=== PATIENT | female | born 1995 | race Hispanic/Latino ===

== ENCOUNTER 2019-06-01 13:07 | Emergency (ER) | payer OTHER, SELFPAY ==
[2019-06-01 13:30] VITALS: BP 117/75; PULSE 92; RESP 18; TEMP 36.5; O2SAT 99; BMI 27.8
[2019-06-01 14:53] VITALS: PULSE 83; RESP 16; O2SAT 99
[2019-06-01] MEDS: ALBUTEROL 2.5 MG/3 ML NEB (ADULT) INH (14:53)
--- NOTE | 2019-06-01 14:59 | ED_ITS ---
HPI - URI/Sore Throat <RENATO Fonseca - Last Filed: 06/01/19 22:08> General Chief Complaint: Upper Respiratory Symptoms Stated Complaint: 16 weeks ob/sob,congestion,ache x1 day Time Seen by Provider: 06/01/19 14:08 Source: patient Mode of arrival: ambulatory Limitations: no limitations History of Present Illness HPI Narrative: 23-year-old female , presents emergency department today complaining of chest tightness, nasal congestion, postnasal drip, and increased allergy symptoms over the past days. She states that she has had asthma as a child and has only used albuterol inhaler, she has not had to use an inhaler for years. However, she states her allergy symptoms have been increased recently and she took Zyrtec a few days ago which helped her symptoms for a day. She al so complains of an associated dry cough. Denies fevers, sore throat, chills, chest pain, abdominal pain, vaginal bleeding, dizziness, heart problems, respiratory problems, history of DVT, recent long trips or plane rides, or anxiety. She states that this feels like when she has to have asthma. Related Data Previous Rx's Medication Instructions Recorded albuterol sulfate [Ventolin HFA] 2 puff INHALATION Q4-6H PRN #8 gram 06/01/19 Allergies Allergy/AdvReac Type Severity Reaction Status Date / Time No Known Drug Allergies Allergy Verified 06/01/19 13:30 Review of Systems <RENATO Fonseca - Last Filed: 06/01/19 22:08> Review of Systems Narrative: REVIEW OF SYSTEMS: GENERAL: Denies fever or chills. HENT: No head trauma, hearing loss or sore throat. Complains of nasal congestion, see HPI. EYES: No loss of vision, double vision, eye pain, or irritation. CARDIOVASCULAR: No chest pain or syncope. RESPIRATORY: Complains of chest tightness, see HPI. GASTROINTESTINAL: No nausea, vomiting, diarrhea, or constipation. GENITOURINARY: No flank pain or dysuria. Patient reports she is , see HPI. MUSCULOSKELETAL: No pain, weakness, or deformities. INTEGUMENTARY: No rash, lesions, or pruritus. NEURO: No numbness, tingling, memory loss, or confusion. PSYCH: No behavior or mood changes. PFSH <RENATO Fonseca - Last Filed: 06/01/19 22:08> Medical History (Acute) Social History Smoking Status: Never smoker Social History Smoking Status: Never smoker Exam <RENATO Fonseca - Last Filed: 06/01/19 22:08> Initial Vital Signs Initial Vital Signs: Vital Signs Temperature 97.7 F 06/01/19 13:30 Pulse Rate 92 H 06/01/19 13:30 Respiratory Rate 18 06/01/19 13:30 Blood Pressure 117/75 06/01/19 13:30 Pulse Oximetry 99 06/01/19 13:30 PHYSICAL EXAMINATION: GENERAL: Well groomed, alert, and cooperative. Answers questions promptly and appropriately. Vital signs noted. HENT: Normocephalic, atraumatic. Ear canals patent. TMs intact without erythema or exudate. Postnasal drip noted to oropharynx, with slight erythema. Tonsils not visible. Oral mucosa is pink and moist. EYES: Conjunctiva pink, sclera white, no periorbital swelling. CHEST: Normal to inspection and without deformities. CARDIOVASCULAR: S1 and S2 sounds normal. Regular rate and rhythm, no murmurs, clicks, or bruits. No pedal edema. RESPIRATORY: Normal respiratory rate, trachea midline, airway patent. No stridor, nasal flaring or accessory muscle use. Lungs are clear in all [place] without wheeze, rhonchi, or crackles. GASTROINTESTINAL: Bowel sounds normoactive. Abdomen is soft and non-tender. No organomegaly. MUSCULOSKELETAL: Normal gait and coordination. Equal tone and mass bilaterally. EXTREMITIES: CMS intact. Moves all extremities. SKIN: Warm, dry, soft, appropriate color for ethnicity. No lesions, rashes, or wounds. NEURO: Alert and Oriented X 3. Good coordination. No ataxia, or sensory deficits, or cognitive issues. PSYCH: Appropriate affect and mood. <Jimmie Damon DO - Last Filed: 06/02/19 07:21> Initial Vital Signs Initial Vital Signs: Vital Signs Temperature 97.7 F 06/01/19 13:30 Pulse Rate 92 H 06/01/19 13:30 Respiratory Rate 18 06/01/19 13:30 Blood Pressure 117/75 06/01/19 13:30 Pulse Oximetry 99 06/01/19 13:30 Course <RENATO Fonseca - Last Filed: 06/01/19 22:08> Course Course Narrative: Patient was given an albuterol nebulizer to see if her symptoms would improve. Patient reports her symptoms completely resolved after 1 administration of albuterol. Orders Ordered: Discontinued Medications Albuterol (Ventolin) 2.5 mg INH NOW ONE Stop: 06/01/19 14:43 Last Admin: 06/01/19 14:53 Dose: 2.5 mg Documented by: JANINE Consultations Consultation #1: Patient staffed with Dr. Damon. Vital Signs Vital signs: Vital Signs - 8 hr 06/01/19 14:53 06/01/19 15:54 Pulse Rate 83 92 H Respiratory Rate 16 15 Blood Pressure [Left Arm] 108/65 Pulse Oximetry 99 100 <Jimmie Damon DO - Last Filed: 06/02/19 07:21> Orders Ordered: Discontinued Medications Albuterol (Ventolin) 2.5 mg INH NOW ONE Stop: 06/01/19 14:43 Last Admin: 06/01/19 14:53 Dose: 2.5 mg Documented by: JANINE Vital Signs Vital signs: Vital Signs - 8 hr 06/01/19 14:53 06/01/19 15:54 Pulse Rate 83 92 H Respiratory Rate 16 15 Blood Pressure [Left Arm] 108/65 Pulse Oximetry 99 100 MDM - URI/Sore Throat <RENATO Fonseca - Last Filed: 06/01/19 22:08> Medical Records Attestation: I reviewed the patient's medical records. Lab Data Attestation: I reviewed the patient's lab results. ECG Data Interpretation: Normal sinus rhythm, rate 89, GA interval 138, QTC 400. No ST elevation or ST depression, no T-wave abnormal T. no ectopy. EKG was also viewed by Dr. Damon. [facility] Narrative Medical decision making narrative: Differential includes reactive airway disease (most like likely due to history of asthma as a child, history of allergic rhinitis, upper respiratory symptoms including postnasal drip results of Zyrtec, complete resolution of symptoms with albuterol, description of chest tightness during allergy exacerbation, report of decreased symptoms 1 Zyrtec was taking, and patient's history of which can exacerbate asthma symptoms), upper respiratory tract infection (less likely due to productive cough, reports of allergies, reports of reduce symptoms with Zyrtec), PE (less likely due to resolution of symptoms with albuterol, no tachycardia before the administration of albuterol, resolution of shortness of breath with albuterol, no hypoxia, low risk factors), acute coronary syndrome (was locally due to lack of chest p ressure, resolution with appear, unremarkable EKG). Strict return precautions given and follow-up instructions discussed-especially due to and the possibility of worsening asthma during her . Discharge Plan Departure Patient Disposition: Home Clinical Impression: Post-nasal drainage Reactive airway disease Qualifiers: Asthma severity: mild Asthma persistence: intermittent Asthma complication t ype: with acute exacerbation Qualified Code(s): J45.21 - Mild intermittent asthma with (acute) exacerbation Discharge Date/Time: 06/01/19 15:56 Instructions: Asthma -- Adult, Allergic Rhinitis Activity Restrictions/Additional Instructions: Thank you for entrusting me with your care today. As discussed, it is possible your symptoms are caused by seasonal allergies and reactive airway disease (or asthma) that is aggravated by your seasonal allergies and possibly by . I have prescribed you an albuterol inhaler, you may take 2 puffs every 4-6 hours as needed for chest tightness or wheezing. Incs-kia-sredpew Zyertec can be use in when allergy symptoms occur. Please follow-up with your OB and/or primary care provider in the next week as scheduled to discuss further treatment and testing if needed. Return to the emergency department if you develope shortness of breath that does not respond to your inhaler, worsening shortness of breath, chest pain, fevers, chills, nausea, vomiting, abdominal pain, or syncope. Prescriptions: New albuterol sulfate [Ventolin HFA] 90 mcg/actuation HFA aerosol inhaler 2 puff INHALATION Q4-6H PRN (Reason: shortness of breath) Qty: 8 RF: 0 <Jimmie Damon, - Last Filed: 06/02/19 07:21> Sign Out Provider Sign Out Attestation: I was available for consultation during this patient's emergency department encounter
[2019-06-01 15:54] VITALS: BP 108/65; PULSE 92; RESP 15; O2SAT 100
== END 2019-06-01 15:56 | disposition home or self-care (01) ==
PROVIDERS: Emergency Provider Nurse Practitioner
DX: J45.21 Mild intermittent asthma with (acute) exacerbation (principal); R09.82 Postnasal drip
CPT/HCPCS: 93005; 94640; 99282; J7613

== ENCOUNTER → 2019-07-09 06:50 | Outpatient (CLI) | payer OTHER, SELFPAY ==
--- NOTE | 2019-07-09 | DI.US.S_ITS ---
PROCEDURE: US OB >= 14 WEEKS FETUS INDICATIONS: ANATOMY OUTSIDE/PRIOR DATING DATA: Last menstrual period (LMP): 02/01/19. LMP-based estimated date of delivery (AMANDA): 11/08/19. First dating scan (date and location): 07/09/19. Estimated date of delivery (AMANDA) from first dating scan: 11/09/19. TECHNIQUE: Real-time scanning was performed of the fetus, with image documentation and biometric measurements. Endovaginal scanning: Not performed COMPARISON: None. FINDINGS: General: A single living intrauterine gestation is present. Presentation: Vertex. Placenta: Placental position is anterior, without previa. Amniotic fluid index: 15.0 cm, normal range is 5-24 cm. largest pocket measures 5.3 cm heart rate: 141 beats per minute. Maternal cervical canal: 3.7 cm long. Normal lower limit is 2.5 cm. biometrics: Biparietal diameter: 5.5 cm 22 weeks 6 days Head circumference: 20.3 cm, 22 weeks 3 days Abdominal circumference: 16.7 cm, 21 weeks 5 days Femur length: 3.9 cm, 22 weeks 5 days Estimated gestational age from initial scan: not applicable. Composite gestational age from present scan: 22 weeks 3 days Estimated weight and percentile: 484 g, 26th percentile Measurement variability for biometric dating: +/- 7 days from 14 weeks to 15 weeks 6 days gestation, +/- 10 days from 16 weeks to 21 weeks 6 days gestation, +/- 2 weeks from 22 weeks to 27 weeks 6 days gestation, +/- 3 weeks for 28 weeks gestation or later. weight reference: 4500 g or EFW >90/95% is considered macrosomia or large for gestational age. EFW <10% is small for gestational age. EFW 5% or less is considered intra-uterine growth restriction. Anatomic survey: Neuro: Ventricles are non-dilated at less than 10 mm. Cisterna magna is prominent however technically normal at 3-11 mm. Cerebellum is normal in size and morphology. Nuchal skin fold: Normal at less than 6 mm between 14-21 weeks gestational age. Face: Not well-visualized secondary to lie Spine: No evidence for spina bifida. Heart: 4-chambered heart is present, with normal ventricular outflow tracts. Diaphragm: Diaphragm is intact. Stomach: Left-sided stomach is present. Kidneys: No hydronephrosis. Normal is less than 5 mm in 2nd trimester, less than 7 mm in 3rd trimester. Cord: 3-vessel cord has orthotopic insertion. Bladder: Normal in size. Extremities: All 4 extremities identified. IMPRESSION: Single living intrauterine fetus in vertex presentation demonstrating expected growth as detailed above. anatomic survey as above. Recommend followup for nonvisualized face/profile. Dictated by: Kenneth Cruz M.D. on 07/09/2019 at 9:22 Approved by: Kenneth Cruz M.D. on 07/09/2019 at 9:27
== END ==
PROVIDERS: Visit Provider Obstetrics & Gynecology
DX: Z36.89 Encounter for other specified antenatal screening (principal); Z3A.22 22 weeks gestation of pregnancy
CPT/HCPCS: 76811